=== PATIENT | female | born 1980 | race African-American/Black ===

== ENCOUNTER 2021-08-14 11:49 | Inpatient (IN) | payer MEDICARE, MEDICAID ==
[~2021-08-14] VITALS: Ht 157.5 cm; Wt 91.7 kg
[~2021-08-14 11:49] MED LIST: ASPI-1073 PO; GABA100C PO; GLYB5TAB7 PO; albuterol INH; carvedilol PO; furosemide PO; metformin
[2021-08-14 13:03] LABS: BASOPHILS % 0.8 % (0.0-2.0); EOSINOPHILS % 1.6 % (0.0-5.0); HEMATOCRIT. 39.5 % (36.0-48.0); HEMOGLOBIN. 13.2 g/dL (12.0-16.0); LYMPHOCYTES % 22.2 % (20.0-50.0); MEAN CORPUSCULAR HEMOGLOBIN 31.7 pg (28.0-32.0); MEAN CORPUSCULAR VOLUME 94.5 fL (81.0-99.0); MEAN PLATELET VOLUME 9.2 fl (7.4-10.4); MONOCYTES % 6.5 % (2.0-8.0); NEUTROPHILS % 68.9 % (40.0-76.0); PLATELET 244 x1000/uL (130-400); RED BLOOD CELL COUNT 4.18 mill/uL (4.2-5.4)
[2021-08-14 13:04] LABS: CHLORIDE 95 mEq/L (98-107)
[2021-08-14] MEDS ORDERED: ASPIRIN 81MG TABLET PO ONE (17:00)
[2021-08-14] MEDS ORDERED: DOCUSATE SODIUM 100MG CAPSULE PO PRN (22:45)
[2021-08-14] MEDS ORDERED: HYDROMORPHONE HCL/PF 2MG/ML CPJ IV PRN (22:45)
[2021-08-14] MEDS ORDERED: ONDANSETRON HCL 4MG/2ML INJ IV PRN (22:45)
[2021-08-14] MEDS ORDERED: CLONIDINE 0.1MG TABLET PO PRN (22:45)
[2021-08-14] MEDS ORDERED: MAGNESIUM/ALUMINUM HYDROXIDE/SIMETHICONE 30ML UDC PO PRN (22:45)
[2021-08-15] VITALS (12 sets, daily range): BP systolic 128–166; BP diastolic 67–96
[2021-08-15] MEDS: AMLODIPINE 10MG TABLET PO SCH ×2 (00:04→09:09)
[2021-08-15] MEDS ORDERED: *PATIENT'S OWN MEDICATION STORAGE XX SCH (03:00)
[2021-08-15] MEDS ORDERED: DEXTROSE 50% WATER 50ML SYRINGE IV PRN (06:30)
[2021-08-15] MEDS: BLOOD SUGAR DIAGNOSTIC STRIP TEST SCH ×4 (07:01→21:30)
[2021-08-15 07:21] LABS: BASOPHILS % 1.6 % (0.0-2.0); EOSINOPHILS % 2.1 % (0.0-5.0); HEMOGLOBIN. 12.1 g/dL (12.0-16.0); LYMPHOCYTES % 22.1 % (20.0-50.0); MEAN CORPUSCULAR HEMOGLOBIN 31.1 pg (28.0-32.0); MEAN CORPUSCULAR VOLUME 95.4 fL (81.0-99.0); MEAN PLATELET VOLUME 9.7 fl (7.4-10.4); MONOCYTES % 8.7 % (2.0-8.0); NEUTROPHILS % 65.5 % (40.0-76.0); PLATELET 224 x1000/uL (130-400); RED BLOOD CELL COUNT 3.88 mill/uL (4.2-5.4); RED CELL DISTRIBUTION WIDTH 15.8 % (11.6-14.6)
[2021-08-15 07:29] LABS: CHLORIDE 94 mEq/L (98-107)
[2021-08-15 07:37] LABS: LDL CHOLESTEROL 80 mg/dL (5-100)
[2021-08-15 07:38] LABS: HDL CHOLESTEROL 47 mg/dL (40-59)
[2021-08-15] MEDS: INSULIN LISPRO 100 UNITS/ML SUBCUT SCH ×2 (07:39→12:07)
[2021-08-15] MEDS ORDERED: PANT20TA17 PO (07:47)
[2021-08-15] MEDS ORDERED: SEVE800T8 MT (07:47)
[2021-08-15] MEDS ORDERED: GLIM4TAB36 PO (07:47)
[2021-08-15] MEDS ORDERED: ATOR20TA PO (07:47)
[2021-08-15] MEDS ORDERED: ISOS40TA17 MT (07:48)
[2021-08-15] MEDS ORDERED: ASPIRIN 81MG EC TABLET PO SCH (09:00)
[2021-08-15] MEDS ORDERED: INSULIN REGULAR (HUMULIN R) UD 100 UNITS/ML SYR IV NR (09:15)
[2021-08-15] MEDS ORDERED: SODIUM BICARBONATE 8.4% 1 MEQ/ML 50ML SYR IV NR (09:15)
[2021-08-15] MEDS: DEXTROSE 50% WATER 50ML SYRINGE IV NR ×2 (09:52→11:06)
[2021-08-15] MEDS ORDERED: DIPHENHYDRAMINE 25MG CAPSULE PO PRN (12:30)
[2021-08-15 12:34] LABS: HEPATITIS B SURFACE ANTIGEN NEGATIVE
[2021-08-15] MEDS: SEVELAMER CARBONATE 800 MG TABLET PO SCH ×2 (13:11→18:33)
[2021-08-15] MEDS: ISOSORBIDE MONONITRATE 30MG TABLET SR 24HR PO SCH (13:11)
[2021-08-15] MEDS: GLYBURIDE 5MG TABLET PO SCH (15:04)
[2021-08-15] MEDS ORDERED: ATORVASTATIN CALCIUM 20MG TABLET PO SCH (21:00)
[2021-08-16] VITALS (8 sets, daily range): BP systolic 122–152; BP diastolic 60–95
[2021-08-16] MEDS: BLOOD SUGAR DIAGNOSTIC STRIP TEST SCH ×2 (06:21→11:54)
[2021-08-16] MEDS: SEVELAMER CARBONATE 800 MG TABLET PO SCH ×2 (08:04→12:31)
[2021-08-16] MEDS: GLYBURIDE 5MG TABLET PO SCH (08:04)
[2021-08-16] MEDS: AMLODIPINE 10MG TABLET PO SCH (08:05)
[2021-08-16] MEDS: ISOSORBIDE MONONITRATE 30MG TABLET SR 24HR PO SCH (08:05)
[2021-08-16] MEDS ORDERED: ASPIRIN 81MG EC TABLET PO SCH (09:00)
== END 2021-08-16 16:09 | disposition home or self-care (01) | DRG 205 ==
LOC: ER 11:49 → 3WST 17:57 → EDBEDREQ 18:11 → EDBEDREQTM 18:11 → ENRESERV 21:49 → 3WST 22:42
PROVIDERS: ADMIT Hospitalist; ATTEND Hospitalist
PROC: 5A1D70Z Performance of Urinary Filtration, Intermittent, Less than 6 Hours Per Day (ICD-10-PCS; principal; 2021-08-15)
DX: M94.0 Chondrocostal junction syndrome [Tietze] (principal); N18.6 End stage renal disease; I13.2 Hypertensive heart and chronic kidney disease with heart failure and with stage 5 chronic kidney disease, or end stage renal disease; I50.32 Chronic diastolic (congestive) heart failure; Z99.2 Dependence on renal dialysis; Z86.73 Personal history of transient ischemic attack (TIA), and cerebral infarction without residual deficits; E87.5 Hyperkalemia; E78.5 Hyperlipidemia, unspecified; E11.65 Type 2 diabetes mellitus with hyperglycemia; E11.22 Type 2 diabetes mellitus with diabetic chronic kidney disease; E78.00 Pure hypercholesterolemia, unspecified; Z88.8 Allergy status to other drugs, medicaments and biological substances; Z79.82 Long term (current) use of aspirin; Z79.84 Long term (current) use of oral hypoglycemic drugs; Z79.899 Other long term (current) drug therapy
CPT/HCPCS: 36415; 71045; 80053; 80061; 82962; 83036; 83880; 84132; 84484; 85025; 86705; 86709; 86803; 87340; 93005; 93306; 93970; 99285; J1815; J3490; Q0163